=== PATIENT | female | born 1990 | race African-American/Black ===

== ENCOUNTER 2021-11-06 13:44 | Emergency (ER) | payer SELFPAY ==
[~2021-11-06] VITALS: Ht 167.6 cm; Wt 113.0 kg
[2021-11-06] MEDS ORDERED: KETOROLAC 60MG/2ML VIAL IM ONE (14:45)
[2021-11-06] MEDS ORDERED: IBUPROFEN 600MG TABLET PO ONE (16:30)
[2021-11-06] MEDS ORDERED: BENZ1LOZ73 MT (17:34)
[2021-11-06] MEDS ORDERED: IBUP-2029 MT (17:34)
[2021-11-06 17:47] VITALS: BP 101/64
== END 2021-11-06 17:47 | disposition home or self-care (01) ==
LOC: ER 13:44
DX: J02.9 Acute pharyngitis, unspecified (principal)
CPT/HCPCS: 81025; 87070; 87430; 99283; J1885

== ENCOUNTER 2025-02-12 19:26 | Emergency (ER) | payer MEDICAID ==
[~2025-02-12] VITALS: Ht 167.6 cm; Wt 143.0 kg
[~2025-02-12 19:26] MED LIST: BENZ1LOZ73 MT; IBUP-1455 MT
[2025-02-12 19:36] VITALS: O2SAT 100
[2025-02-12 19:38] VITALS: BP 158/96; PULSE 76; RESP 18; TEMP 36.7; O2SAT 100
[2025-02-12 20:36] LABS: BASOPHILS % 1.2 % (0.0-2.0); EOSINOPHILS % 1.0 % (0.0-5.0); HEMATOCRIT. 36.4 % (36.0-48.0); HEMOGLOBIN. 11.9 g/dL (12.0-16.0); LYMPHOCYTES % 32.6 % (20.0-50.0); MEAN PLATELET VOLUME 9.8 fl (7.4-10.4); MONOCYTES % 6.0 % (2.0-8.0); NEUTROPHILS % 59.2 % (40.0-76.0); PLATELET 235 x1000/uL (130-400); RED BLOOD CELL COUNT 4.36 mill/uL (4.2-5.4); RED CELL DISTRIBUTION WIDTH 14.5 % (11.6-14.6)
[2025-02-12 20:52] LABS: CREATININE 0.8 mg/dL (0.6-1.0)
[2025-02-12 20:53] LABS: TROPONIN I HIGH SENSITIVITY < 4 ng/L (3.0-34); UREA NITROGEN BLOOD 7 mg/dL (9-23)
[2025-02-12 20:54] LABS: ASPARTATE AMINOTRANSFERASE 12 IU/L (<34)
[2025-02-12 20:55] LABS: BILIRUBIN DIRECT 0.1 mg/dL (<=3.0); BILIRUBIN TOTAL 0.5 mg/dL (0.1-1.0); PROTEIN TOTAL 7.2 g/dL (6.0-8.3)
[2025-02-12 20:56] LABS: B-HCG QUANTITATIVE < 1 mIU/mL (<6)
[2025-02-12 22:40] LABS: CLARITY URINE CLEAR (CLEAR); COLOR URINE YELLOW (YELLOW); GLUCOSE URINE NEGATIVE (NEGATIVE); KETONES URINE NEGATIVE (NEGATIVE); LEUKOCYTE ESTERASE URINE NEGATIVE (NEGATIVE); NITRITE URINE NEGATIVE (NEGATIVE); OCCULT BLOOD URINE NEGATIVE (NEGATIVE); PH URINE 5.5 (4.5-8.0); PROTEIN URINE NEGATIVE (NEGATIVE); SPECIFIC GRAVITY URINE 1.007 (1.005-1.030); UROBILINOGEN URINE 0.2 E.U./dL (0.2-1.0)
[2025-02-12] MEDS ORDERED: IBUP-1455 MT (22:49)
[2025-02-12 23:07] LABS: *AMPHETAMINES SCREEN URINE NEGATIVE (NEGATIVE); *BARBITURATES SCREEN URINE NEGATIVE (NEGATIVE); *BENZODIAZEPINES SCREEN URINE NEGATIVE (NEGATIVE); *COCAINE SCREEN URINE NEGATIVE (NEGATIVE); METHADONE URINE SCREEN NEGATIVE (NEGATIVE); OPIATES URINE SCREEN NEGATIVE (NEGATIVE)
[2025-02-12 23:08] LABS: CANNABINOID URINE SCREEN PRESUMPTIVE POSITIVE (NEGATIVE); ECSTASY MDMA SCREEN URINE NEGATIVE (NEGATIVE); PHENCYCLIDINE URINE SCREEN NEGATIVE (NEGATIVE)
[2025-02-12] MEDS: IBUPROFEN 800MG TABLET PO ONE (23:20)
== END 2025-02-12 23:22 | disposition home or self-care (01) ==
LOC: ER 19:26
DX: R07.81 Pleurodynia (principal); R06.02 Shortness of breath; R10.20 Pelvic and perineal pain unspecified side; Z79.899 Other long term (current) drug therapy
CPT/HCPCS: 36415; 71045; 80048; 80076; 80305; 81003; 81025; 83735; 83880; 84484; 84702; 85025; 93005; 99285